=== PATIENT | female | born 1945 | race African-American/Black ===

== ENCOUNTER 2017-12-13 15:24 | Emergency (ER) | payer MEDICARE, MEDICAID ==
[~2017-12-13] VITALS: Ht 170.2 cm; Wt 104.0 kg
[~2017-12-13 15:24] MED LIST: AMIO200T PO; FERR-71 PO; FURO40TA5 PO; GLIM2TAB2 PO; HYDR100T26 PO; LEVO500T89 PO; POTA10TA11; VIC
[2017-12-13] MEDS ORDERED: SODIUM CHLORIDE 0.9% 500 ML IV ONE (15:45)
[2017-12-13 17:02] LABS: HEMATOCRIT. 32.6 % (36.0-48.0); HEMOGLOBIN. 10.5 g/dL (12.0-16.0); MEAN CORPUSCULAR HEMOGLOBIN 31.5 pg (28.0-32.0); MEAN CORPUSCULAR VOLUME 97.7 fL (81.0-99.0); MEAN PLATELET VOLUME 8.9 fl (7.4-10.4); PLATELET 282 x1000/uL (130-400); RED BLOOD CELL COUNT 3.34 mill/uL (4.2-5.4); RED CELL DISTRIBUTION WIDTH 15.2 % (11.6-14.6)
[2017-12-13 17:07] LABS: CHLORIDE 98 mEq/L (98-107); INR 1.1; PROTHROMBIN TIME 10.9 sec (9.1-11.1)
[2017-12-13 17:27] LABS: PLATELET ESTIMATE NORMAL
[2017-12-13] MEDS ORDERED: PIPERACILLIN/TAZ 3.375G PREMIX 50 ML IV ONE (17:45)
[2017-12-13] MEDS ORDERED: VANCOMYCIN 1 G PREMIX 200 ML IV ONE (17:45)
[2017-12-13] MEDS ORDERED: ENOXAPARIN 40MG/0.4ML SYR SUBCUT SCH (19:00)
[2017-12-13] MEDS ORDERED: VANCOMYCIN 1 G PREMIX 200 ML IV SCH (19:00)
[2017-12-13] MEDS ORDERED: DIPHENHYDRAMINE 50MG/ML VIAL IV PRN (19:00)
[2017-12-13] MEDS ORDERED: ONDANSETRON HCL 4MG/2ML VIAL IV PRN (19:00)
[2017-12-13] MEDS ORDERED: CLONIDINE 0.1MG TABLET PO PRN (19:00)
[2017-12-13] MEDS ORDERED: LEVOFLOXACIN 500MG PREMIX 100 ML IV SCH (19:00)
[2017-12-13] MEDS ORDERED: ACETAMINOPHEN 325MG TABLET PO PRN (19:00)
[2017-12-13 20:14] VITALS: BP 125/66
== END 2017-12-13 20:21 | disposition left against medical advice (07) ==
LOC: ER 15:24 → EDBEDREQ 15:40 → EDBEDREQTM 18:08 → EDBEDREQ 18:08 → ENRESERV 18:55 → ER 20:21 → CANBEDREQ 20:23
DX: G93.40 Encephalopathy, unspecified (principal); R65.10 Systemic inflammatory response syndrome (SIRS) of non-infectious origin without acute organ dysfunction; I12.0 Hypertensive chronic kidney disease with stage 5 chronic kidney disease or end stage renal disease; E11.22 Type 2 diabetes mellitus with diabetic chronic kidney disease; N18.6 End stage renal disease; I51.7 Cardiomegaly; Z99.2 Dependence on renal dialysis
CPT/HCPCS: 36415; 70450; 71045; 80053; 84484; 85025; 85610; 87040; 93005; 96361; 96365; 96366; 99291; J3370; J7040